=== PATIENT | female | born 1960 | race Caucasian/White ===

== ENCOUNTER → 2016-11-03 | Outpatient (CLI) | payer MEDICARE, OTHER | LOC: MAMO 09-05 13:40 | DX: Z12.31 Encounter for screening mammogram for malignant neoplasm of breast (principal) | CPT/HCPCS: G0202 ==

== ENCOUNTER 2020-08-19 18:22 | Inpatient (IN) | payer MEDICARE, OTHER ==
[~2020-08-19] VITALS: Ht 147.3 cm; Wt 65.3 kg
[~2020-08-19 18:22] MED LIST: MACROBID 100 M100 MG PO; PYRIDIUM100 MG PO
[2020-08-19 18:56] LABS: HEMOGLOBIN 12.2 gm/dl (12.3-15.3); RED BLOOD COUNT 3.83 M/UL (4.00-5.10)
[2020-08-19 19:33] LABS: BUN/CREATININE RATIO 22 (0-10)
[2020-08-19] MEDS ORDERED: FOSAMAX70 MG PO (21:58)
[2020-08-19] MEDS ORDERED: TOPROL XL 25 MG25 MG PO (22:00)
[2020-08-19] MEDS ORDERED: SEROQUEL TAB 2525 MG PO (22:01)
[2020-08-19] MEDS ORDERED: ACID CONTROLLER20 MG PO (22:02)
[2020-08-19] MEDS ORDERED: MIRAPEX1 MG PO (22:02)
[2020-08-19] MEDS ORDERED: NEURONTIN300 MG PO (22:03)
[2020-08-19] MEDS ORDERED: ZESTRIL 40 MG T40 MG PO (22:03)
[2020-08-19] MEDS ORDERED: NORVASC10 MG PO (22:03)
[2020-08-19] MEDS ORDERED: ABILIFY 5 MG TAB5 MG PO (22:04)
[2020-08-19] MEDS ORDERED: PROTONIX 40 MG40 M1 PO (22:06)
[2020-08-19] MEDS ORDERED: VISTARIL 25 MG25 MG PO (22:07)
[2020-08-19] MEDS ORDERED: TRAZODONE HCL100 MG PO (22:08)
[2020-08-19] MEDS ORDERED: LEVOTHYROXINE50 MC1 PO (22:08)
[2020-08-19] MEDS ORDERED: VITAMIN D-40010 MCG PO (22:09)
[2020-08-19] MEDS ORDERED: BAYER CHEWABLE81 MG PO (22:10)
[2020-08-19] MEDS ORDERED: SENNA8.6 MG PO (22:10)
[2020-08-19] MEDS ORDERED: VITAMIN B12-FO1 EACH PO (22:16)
[2020-08-19] MEDS ORDERED: CYMBALTA 30 MG30 MG PO (22:18)
[2020-08-19] MEDS ORDERED: HYDROCODON-ACE1 EAC3 PO (22:19)
[2020-08-19] MEDS ORDERED: PREDNISONE 5 MG5 MG PO (22:21)
[2020-08-20 01:06] LABS: HEMOGLOBIN 13.2 gm/dl (12.3-15.3); RED BLOOD COUNT 4.12 M/UL (4.00-5.10); WHITE BLOOD COUNT 13.5 K/UL (4.5-11.0)
[2020-08-20 01:31] LABS: BUN/CREATININE RATIO 21 (0-10)
[2020-08-20] MEDS ORDERED: VISTARIL 50 MG50 MG PO (10:53)
[2020-08-21 03:48] LABS: BUN/CREATININE RATIO 33 (0-10)
[2020-08-22 03:14] LABS: HEMOGLOBIN 11.6 gm/dl (12.3-15.3); WHITE BLOOD COUNT 12.6 K/UL (4.5-11.0)
[2020-08-22 03:15] LABS: RED BLOOD COUNT 3.69 M/UL (4.00-5.10)
[2020-08-22 03:30] LABS: BUN/CREATININE RATIO 29 (0-10)
[2020-08-23 02:47] LABS: HEMOGLOBIN 12.2 gm/dl (12.3-15.3); RED BLOOD COUNT 3.86 M/UL (4.00-5.10); WHITE BLOOD COUNT 9.7 K/UL (4.5-11.0)
[2020-08-23 03:08] LABS: BUN/CREATININE RATIO 29 (0-10)
[2020-08-24 03:15] LABS: HEMOGLOBIN 11.2 gm/dl (12.3-15.3); RED BLOOD COUNT 3.6 M/UL (4.00-5.10); WHITE BLOOD COUNT 7.9 K/UL (4.5-11.0)
[2020-08-24 03:46] LABS: BUN/CREATININE RATIO 32 (0-10)
[2020-08-25 03:23] LABS: HEMOGLOBIN 11.3 gm/dl (12.3-15.3); RED BLOOD COUNT 3.61 M/UL (4.00-5.10)
[2020-08-25 03:32] LABS: BUN/CREATININE RATIO 36 (0-10)
[2020-08-26 02:54] LABS: RED BLOOD COUNT 3.48 M/UL (4.00-5.10); WHITE BLOOD COUNT 10.9 K/UL (4.5-11.0)
[2020-08-26 03:10] LABS: BUN/CREATININE RATIO 28 (0-10)
[2020-08-28 02:18] LABS: HEMOGLOBIN 10.5 gm/dl (12.3-15.3); RED BLOOD COUNT 3.36 M/UL (4.00-5.10); WHITE BLOOD COUNT 11.3 K/UL (4.5-11.0)
[2020-08-28 02:37] LABS: BUN/CREATININE RATIO 23 (0-10)
[2020-08-29 03:57] LABS: HEMOGLOBIN 10.6 gm/dl (12.3-15.3); RED BLOOD COUNT 3.4 M/UL (4.00-5.10); WHITE BLOOD COUNT 11.3 K/UL (4.5-11.0)
[2020-08-29 04:16] LABS: BUN/CREATININE RATIO 23 (0-10)
[2020-08-30 03:28] LABS: HEMOGLOBIN 10.5 gm/dl (12.3-15.3); RED BLOOD COUNT 3.36 M/UL (4.00-5.10); WHITE BLOOD COUNT 11.6 K/UL (4.5-11.0)
[2020-08-30 03:43] LABS: BUN/CREATININE RATIO 27 (0-10)
[2020-08-31 02:28] LABS: HEMOGLOBIN 10.7 gm/dl (12.3-15.3); RED BLOOD COUNT 3.35 M/UL (4.00-5.10); WHITE BLOOD COUNT 12.3 K/UL (4.5-11.0)
[2020-08-31 02:46] LABS: BUN/CREATININE RATIO 30 (0-10)
[2020-09-01 02:59] LABS: HEMOGLOBIN 10.8 gm/dl (12.3-15.3); RED BLOOD COUNT 3.48 M/UL (4.00-5.10); WHITE BLOOD COUNT 12.8 K/UL (4.5-11.0)
[2020-09-01 03:26] LABS: BUN/CREATININE RATIO 23 (0-10)
[2020-09-02 02:29] LABS: HEMOGLOBIN 11.5 gm/dl (12.3-15.3); RED BLOOD COUNT 3.68 M/UL (4.00-5.10)
[2020-09-02 03:01] LABS: BUN/CREATININE RATIO 29 (0-10)
[2020-09-03 03:57] LABS: HEMOGLOBIN 11.1 gm/dl (12.3-15.3); RED BLOOD COUNT 3.56 M/UL (4.00-5.10); WHITE BLOOD COUNT 12.3 K/UL (4.5-11.0)
[2020-09-03 04:17] LABS: BUN/CREATININE RATIO 26 (0-10)
[2020-09-04 02:43] LABS: HEMOGLOBIN 10.6 gm/dl (12.3-15.3); RED BLOOD COUNT 3.37 M/UL (4.00-5.10); WHITE BLOOD COUNT 14.2 K/UL (4.5-11.0)
[2020-09-04 03:11] LABS: BUN/CREATININE RATIO 27 (0-10)
[2020-09-05 04:45] LABS: HEMOGLOBIN 10.5 gm/dl (12.3-15.3); RED BLOOD COUNT 3.37 M/UL (4.00-5.10); WHITE BLOOD COUNT 13.8 K/UL (4.5-11.0)
[2020-09-05 05:04] LABS: BUN/CREATININE RATIO 27 (0-10)
[2020-09-06 04:01] LABS: HEMOGLOBIN 10.3 gm/dl (12.3-15.3); RED BLOOD COUNT 3.28 M/UL (4.00-5.10); WHITE BLOOD COUNT 15.4 K/UL (4.5-11.0)
[2020-09-06 04:35] LABS: BUN/CREATININE RATIO 31 (0-10)
[2020-09-09 16:04] LABS: BUN/CREATININE RATIO 30 (0-10)
[2020-09-09 17:56] LABS: RED BLOOD COUNT 3.52 M/UL (4.00-5.10); WHITE BLOOD COUNT 13.6 K/UL (4.5-11.0)
[2020-09-10 02:24] LABS: HEMOGLOBIN 10.6 gm/dl (12.3-15.3); RED BLOOD COUNT 3.4 M/UL (4.00-5.10)
[2020-09-10 02:47] LABS: BUN/CREATININE RATIO 35 (0-10)
[2020-09-11 02:26] LABS: HEMOGLOBIN 10.7 gm/dl (12.3-15.3); RED BLOOD COUNT 3.41 M/UL (4.00-5.10); WHITE BLOOD COUNT 12.1 K/UL (4.5-11.0)
[2020-09-11 02:48] LABS: BUN/CREATININE RATIO 30 (0-10)
[2020-09-12 06:22] LABS: BUN/CREATININE RATIO 34 (0-10)
[2020-09-12 06:26] LABS: HEMOGLOBIN 10.3 gm/dl (12.3-15.3); RED BLOOD COUNT 3.36 M/UL (4.00-5.10); WHITE BLOOD COUNT 12.3 K/UL (4.5-11.0)
[2020-09-13 02:20] LABS: HEMOGLOBIN 10.2 gm/dl (12.3-15.3); RED BLOOD COUNT 3.26 M/UL (4.00-5.10); WHITE BLOOD COUNT 10.4 K/UL (4.5-11.0)
[2020-09-13 02:40] LABS: BUN/CREATININE RATIO 38 (0-10)
[2020-09-14 02:33] LABS: BUN/CREATININE RATIO 31 (0-10)
[2020-09-14 02:53] LABS: HEMOGLOBIN 10.2 gm/dl (12.3-15.3); RED BLOOD COUNT 3.28 M/UL (4.00-5.10); WHITE BLOOD COUNT 9.8 K/UL (4.5-11.0)
[2020-09-15 03:14] LABS: HEMOGLOBIN 10.3 gm/dl (12.3-15.3); RED BLOOD COUNT 3.29 M/UL (4.00-5.10); WHITE BLOOD COUNT 9.4 K/UL (4.5-11.0)
[2020-09-15 03:37] LABS: BUN/CREATININE RATIO 25 (0-10)
[2020-09-16 04:13] LABS: HEMOGLOBIN 9.9 gm/dl (12.3-15.3); RED BLOOD COUNT 3.13 M/UL (4.00-5.10)
[2020-09-16 04:35] LABS: BUN/CREATININE RATIO 30 (0-10)
[2020-09-17] MEDS ORDERED: ELIQUIS 2.5 MG2.5 MG PO (13:00)
[2020-09-17] MEDS ORDERED: IPRAT-ALBUT 0.5-3 ML NEB (13:09)
== END 2020-09-18 00:35 | disposition home health service (06) | DRG 177 ==
LOC: ER1 18:22 → MED SURG 4 21:15 → PROG CARE 21:15 → CDU 21:15 → MED SURG 4 08-20 13:28 → PROG CARE 08-22 02:34
PROVIDERS: Family Medicine; Internal Medicine; ADMIT Internal Medicine
PROC: XW13325 Transfusion of Convalescent Plasma (Nonautologous) into Peripheral Vein, Percutaneous Approach, New Technology Group 5 (ICD-10-PCS; 2020-08-19)
PROC: 8E0ZXY6 Isolation (ICD-10-PCS; principal; 2020-08-20)
PROC: XW033E5 Introduction of Remdesivir Anti-infective into Peripheral Vein, Percutaneous Approach, New Technology Group 5 (ICD-10-PCS; 2020-08-20)
PROC: 5A09457 Assistance with Respiratory Ventilation, 24-96 Consecutive Hours, Continuous Positive Airway Pressure (ICD-10-PCS; 2020-08-22)
PROC: 5A0955A Assistance with Respiratory Ventilation, Greater than 96 Consecutive Hours, High Flow/Velocity Cannula (ICD-10-PCS; 2020-09-03)
DX: U07.1 COVID-19 (principal); J12.82 Pneumonia due to coronavirus disease 2019; J15.9 Unspecified bacterial pneumonia; J80 Acute respiratory distress syndrome; D68.32 Hemorrhagic disorder due to extrinsic circulating anticoagulants; E87.6 Hypokalemia; S40.029A Contusion of unspecified upper arm, initial encounter; M81.0 Age-related osteoporosis without current pathological fracture; G47.00 Insomnia, unspecified; I34.1 Nonrheumatic mitral (valve) prolapse; G25.81 Restless legs syndrome; D53.9 Nutritional anemia, unspecified; J84.10 Pulmonary fibrosis, unspecified; M32.9 Systemic lupus erythematosus, unspecified; E55.9 Vitamin D deficiency, unspecified; F32.9 Major depressive disorder, single episode, unspecified; I10 Essential (primary) hypertension; K21.9 Gastro-esophageal reflux disease without esophagitis; G89.29 Other chronic pain; M54.5 Low back pain; G62.9 Polyneuropathy, unspecified; F41.9 Anxiety disorder, unspecified; Z79.02 Long term (current) use of antithrombotics/antiplatelets; Z79.82 Long term (current) use of aspirin; Z80.8 Family history of malignant neoplasm of other organs or systems; Z82.3 Family history of stroke; Z82.49 Family history of ischemic heart disease and other diseases of the circulatory system; Z88.2 Allergy status to sulfonamides; Z88.8 Allergy status to other drugs, medicaments and biological substances; Z79.899 Other long term (current) drug therapy
CPT/HCPCS: 0240U; 36415; 36600; 71045; 80048; 80053; 82550; 82553; 82728; 82803; 83605; 83735; 83874; 83880; 84100; 84132; 84484; 85025; 85027; 85379; 85610; 86140; 86900; 86901; 86927; 87040; 93005; 94640; 94660; 94664; 94760; 96365; 96375; 97110-GP-CQ; 97116; 97116-GP-CQ; 97161; 97530; 97530-GP-CQ; 99285; J0696; J1100; J1120; J1205; J1650; J1940; J2920; J7030; J7040; Q0177; Q9967

== ENCOUNTER 2020-09-24 10:55 | Emergency (ER) | payer MEDICARE, OTHER ==
[~2020-09-24 10:55] MED LIST changes: +ABILIFY 5 MG TAB5 MG PO; +ACID CONTROLLER20 MG PO; +BAYER CHEWABLE81 MG PO; +CYMBALTA 30 MG30 MG PO; +ELIQUIS 2.5 MG2.5 MG PO; +FOSAMAX70 MG PO; +HYDROCODON-ACE1 EAC3 PO; +IPRAT-ALBUT 0.5-3 ML NEB; +LEVOTHYROXINE50 MC1 PO; +MIRAPEX1 MG PO; +NEURONTIN300 MG PO; +NORVASC10 MG PO; +PREDNISONE 5 MG5 MG PO; +PROTONIX 40 MG40 M1 PO; +SENNA8.6 MG PO; +SEROQUEL TAB 2525 MG PO; +TOPROL XL 25 MG25 MG PO; +TRAZODONE HCL100 MG PO; +VISTARIL 25 MG25 MG PO; +VISTARIL 50 MG50 MG PO; +VITAMIN B12-FO1 EACH PO; +VITAMIN D-40010 MCG PO; +ZESTRIL 40 MG T40 MG PO
[2020-09-24 12:04] LABS: HEMOGLOBIN 9.2 gm/dl (12.3-15.3); RED BLOOD COUNT 2.93 M/UL (4.00-5.10); WHITE BLOOD COUNT 11.3 K/UL (4.5-11.0)
[2020-09-24 12:36] LABS: BUN/CREATININE RATIO 15 (0-10)
[2020-09-24] MEDS ORDERED: LASIX 40 MG TAB40 MG PO (18:56)
== END 2020-09-24 20:30 | disposition home or self-care (01) ==
LOC: ER1 10:55
PROVIDERS: Student in an Organized Health Care Education/Training Program
DX: U07.1 COVID-19 (principal); J12.82 Pneumonia due to coronavirus disease 2019; J96.10 Chronic respiratory failure, unspecified whether with hypoxia or hypercapnia; J81.1 Chronic pulmonary edema; I10 Essential (primary) hypertension; Z79.899 Other long term (current) drug therapy
CPT/HCPCS: 0240U; 36600; 71045; 80053; 81001; 82550; 82553; 82803; 83874; 83880; 84484; 85025; 85379; 93005; 96374; 99285; J1940; Q9967

== ENCOUNTER → 2020-10-09 | Outpatient (CLI) | payer MEDICARE, OTHER ==
[~2020-10-09] MED LIST changes: +DESYREL 50 MG T50 MG PO; +DULOXETINE HCL60 MG PO; +FUROSEMIDE20 MG PO; +HYDROXYZINE HCL25 MG PO; +LASIX 40 MG TAB40 MG PO
== END ==
LOC: RAD 15:11
DX: R06.02 Shortness of breath (principal); J84.9 Interstitial pulmonary disease, unspecified
CPT/HCPCS: 71046

== ENCOUNTER 2020-10-15 15:16 | Emergency (ER) | payer MEDICARE, OTHER ==
[~2020-10-15 15:16] MED LIST changes: -DESYREL 50 MG T50 MG PO; -DULOXETINE HCL60 MG PO; -FUROSEMIDE20 MG PO; -HYDROXYZINE HCL25 MG PO
[2020-10-15 16:01] LABS: HEMOGLOBIN 9.1 gm/dl (12.3-15.3); RED BLOOD COUNT 2.99 M/UL (4.00-5.10); WHITE BLOOD COUNT 12.1 K/UL (4.5-11.0)
[2020-10-15 16:41] LABS: BUN/CREATININE RATIO 20 (0-10)
== END 2020-10-15 21:20 | disposition home or self-care (01) ==
LOC: ER1 15:16
PROVIDERS: Physician Assistant
DX: R06.02 Shortness of breath (principal); Z20.822 Contact with and (suspected) exposure to COVID-19; Z86.16 Personal history of COVID-19; I11.0 Hypertensive heart disease with heart failure; I50.9 Heart failure, unspecified; R60.0 Localized edema; J84.10 Pulmonary fibrosis, unspecified
CPT/HCPCS: 36600; 71045; 80053; 82550; 82553; 82803; 83874; 83880; 84484; 85025; 93005; 96374; 99285; J1940; Q9967; U0002

== ENCOUNTER → 2020-11-07 | Outpatient (CLI) | payer MEDICARE, OTHER ==
[~2020-11-07] MED LIST changes: +DESYREL 50 MG T50 MG PO; +DULOXETINE HCL60 MG PO; +FUROSEMIDE20 MG PO; +HYDROXYZINE HCL25 MG PO
== END ==
LOC: HEART 5 16:07
DX: J30.9 Allergic rhinitis, unspecified (principal); J84.10 Pulmonary fibrosis, unspecified; F41.9 Anxiety disorder, unspecified; M19.90 Unspecified osteoarthritis, unspecified site; F32.9 Major depressive disorder, single episode, unspecified; H26.9 Unspecified cataract; I10 Essential (primary) hypertension; E78.00 Pure hypercholesterolemia, unspecified; E03.9 Hypothyroidism, unspecified; Z86.16 Personal history of COVID-19
CPT/HCPCS: 94060; 94729

== ENCOUNTER 2020-11-21 07:23 | Emergency (ER) | payer MEDICARE, OTHER ==
[~2020-11-21 07:23] MED LIST changes: -DESYREL 50 MG T50 MG PO; -DULOXETINE HCL60 MG PO; -FUROSEMIDE20 MG PO; -HYDROXYZINE HCL25 MG PO
[2020-11-21 09:03] LABS: HEMOGLOBIN 9.6 gm/dl (12.3-15.3); RED BLOOD COUNT 3.27 M/UL (4.00-5.10); WHITE BLOOD COUNT 7.1 K/UL (4.5-11.0)
[2020-11-21 09:04] LABS: BUN/CREATININE RATIO 13 (0-10)
== END 2020-11-21 11:35 | disposition home or self-care (01) ==
LOC: ER1 07:23
PROVIDERS: Internal Medicine
DX: R53.1 Weakness (principal); I10 Essential (primary) hypertension; Z90.89 Acquired absence of other organs
CPT/HCPCS: 71046; 80053; 81001; 84484; 85025; 99285

== ENCOUNTER → 2020-12-03 | Outpatient (CLI) | payer MEDICARE, OTHER ==
[~2020-12-03] VITALS: Ht 152.4 cm; Wt 68.5 kg
[~2020-12-03] MED LIST changes: +DESYREL 50 MG T50 MG PO; +DULOXETINE HCL60 MG PO; +FUROSEMIDE20 MG PO; +HYDROXYZINE HCL25 MG PO
== END ==
LOC: OPSV 10:00
DX: D50.9 Iron deficiency anemia, unspecified (principal); K90.9 Intestinal malabsorption, unspecified
CPT/HCPCS: 96365; J1439; J7030

== ENCOUNTER → 2020-12-10 | Outpatient (CLI) | payer MEDICARE, OTHER | LOC: OPSV 10:00 | DX: D50.9 Iron deficiency anemia, unspecified (principal); K90.9 Intestinal malabsorption, unspecified | CPT/HCPCS: 96365; J1439; J7030 ==

== ENCOUNTER 2020-12-19 16:07 | Observation (INO) | payer MEDICARE, OTHER ==
[~2020-12-19] VITALS: Ht 147.3 cm; Wt 68.6 kg
[~2020-12-19 16:07] MED LIST changes: -DESYREL 50 MG T50 MG PO; -DULOXETINE HCL60 MG PO; -FUROSEMIDE20 MG PO; -HYDROXYZINE HCL25 MG PO
[2020-12-19 18:02] LABS: RED BLOOD COUNT 3.71 M/UL (4.00-5.10); WHITE BLOOD COUNT 6.5 K/UL (4.5-11.0)
[2020-12-19 18:07] LABS: BUN/CREATININE RATIO 11 (0-10)
[2020-12-19] MEDS ORDERED: DULOXETINE HCL60 MG PO (23:02)
[2020-12-19] MEDS ORDERED: DESYREL 50 MG T50 MG PO (23:03)
[2020-12-19] MEDS ORDERED: HYDROXYZINE HCL25 MG PO ×2 (23:05→23:13)
[2020-12-19] MEDS ORDERED: FUROSEMIDE20 MG PO (23:08)
[2020-12-20 05:40] LABS: HEMOGLOBIN 10.9 gm/dl (12.3-15.3); RED BLOOD COUNT 3.68 M/UL (4.00-5.10)
[2020-12-20 05:41] LABS: WHITE BLOOD COUNT 10.7 K/UL (4.5-11.0)
[2020-12-20 06:16] LABS: BUN/CREATININE RATIO 11 (0-10)
== END 2020-12-20 14:55 | disposition home or self-care (01) ==
LOC: ER1 16:07 → MED SURG 4 18:49 → CDU 18:49 → MED SURG 4 22:00
PROVIDERS: Emergency Medicine; ADMIT Internal Medicine
DX: G93.40 Encephalopathy, unspecified (principal); I10 Essential (primary) hypertension; K21.9 Gastro-esophageal reflux disease without esophagitis; M32.9 Systemic lupus erythematosus, unspecified; G62.9 Polyneuropathy, unspecified; M54.9 Dorsalgia, unspecified; G89.29 Other chronic pain; E78.5 Hyperlipidemia, unspecified; Z86.16 Personal history of COVID-19; Z88.2 Allergy status to sulfonamides; Z88.8 Allergy status to other drugs, medicaments and biological substances; Z79.891 Long term (current) use of opiate analgesic; Z79.82 Long term (current) use of aspirin; Z79.899 Other long term (current) drug therapy; Z20.822 Contact with and (suspected) exposure to COVID-19
CPT/HCPCS: 36415; 36600; 70450; 70551; 71045; 80053; 80307; 81001; 82550; 82553; 82803; 83874; 84484; 85025; 86140; 87040; 87086; 93005; 96374; 99285; G0378; J0696; J7040; U0002

== ENCOUNTER → 2021-01-21 | Outpatient (CLI) | payer MEDICARE, OTHER ==
[~2021-01-21] MED LIST changes: +DESYREL 50 MG T50 MG PO; +DULOXETINE HCL60 MG PO; +FUROSEMIDE20 MG PO; +HYDROXYZINE HCL25 MG PO
== END ==
LOC: KOH-I 12:57
DX: J84.10 Pulmonary fibrosis, unspecified (principal); R91.8 Other nonspecific abnormal finding of lung field
CPT/HCPCS: 71250

== ENCOUNTER → 2021-03-28 | Outpatient (CLI) | payer MEDICARE, OTHER ==
[2021-03-28 14:55] LABS: HEMOGLOBIN 11.1 gm/dl (12.3-15.3); RED BLOOD COUNT 3.61 M/UL (4.00-5.10); WHITE BLOOD COUNT 6.4 K/UL (4.5-11.0)
[2021-03-28 15:15] LABS: BUN/CREATININE RATIO 14 (0-10)
[2021-03-29 08:13] LABS: HBSAG SCREEN Negative (Negative); HEP B CORE AB, TOT Negative (Negative)
[2021-03-29 12:13] LABS: COMPLEMENT C3, SERUM 134 mg/dL (82-167); COMPLEMENT C4, SERUM 22 mg/dL (12-38); HCV AB <0.1 (0.0-0.9); RHEUMATOID ARTHRITIS FACTOR <10.0 IU/mL (0.0-13.9)
[2021-04-01 13:10] LABS: DSDNA CRITHIDIA LUCILIAE IFA Negative (Negative)
== END ==
LOC: LAB 12:29
PROVIDERS: Nurse Practitioner Family
DX: D89.9 Disorder involving the immune mechanism, unspecified (principal); M25.50 Pain in unspecified joint; R76.8 Other specified abnormal immunological findings in serum; M32.9 Systemic lupus erythematosus, unspecified; Z79.899 Other long term (current) drug therapy; Z11.59 Encounter for screening for other viral diseases
CPT/HCPCS: 36415; 80053; 81001; 82570; 83520; 84156; 85025; 85652; 86140; 86160; 86162; 86200; 86255; 86431; 86704; 86803; 87340

== ENCOUNTER → 2021-04-23 | Outpatient (CLI) | payer MEDICARE, OTHER | LOC: KOH-I 15:17 | DX: R06.02 Shortness of breath (principal); M79.642 Pain in left hand; J98.4 Other disorders of lung | CPT/HCPCS: 71046; 73120 ==

== ENCOUNTER → 2021-05-08 | Outpatient (CLI) | payer MEDICARE, OTHER | LOC: EXRD 13:36 | DX: M25.551 Pain in right hip (principal) | CPT/HCPCS: 73502 ==

== ENCOUNTER → 2021-05-30 | Outpatient (CLI) | payer MEDICARE, OTHER | LOC: HEART 5 11:58 | DX: J84.10 Pulmonary fibrosis, unspecified (principal) | CPT/HCPCS: 94060; 94729 ==

== ENCOUNTER → 2021-07-03 | Outpatient (CLI) | payer MEDICARE, OTHER | LOC: KOH-I 16:32 | DX: R06.2 Wheezing (principal); J84.89 Other specified interstitial pulmonary diseases | CPT/HCPCS: 71046 ==

== ENCOUNTER → 2022-01-29 | Outpatient (CLI) | payer MEDICARE, OTHER | LOC: KOH-I 13:59 | DX: M54.42 Lumbago with sciatica, left side (principal); G89.29 Other chronic pain; M54.2 Cervicalgia; M43.8X6 Other specified deforming dorsopathies, lumbar region; M47.812 Spondylosis without myelopathy or radiculopathy, cervical region; M48.061 Spinal stenosis, lumbar region without neurogenic claudication | CPT/HCPCS: 72040; 72100 ==

== ENCOUNTER → 2022-03-05 | Outpatient (CLI) | payer MEDICARE | LOC: EMI 02-18 11:15 | DX: M51.16 Intervertebral disc disorders with radiculopathy, lumbar region (principal); G89.29 Other chronic pain; M47.816 Spondylosis without myelopathy or radiculopathy, lumbar region; M25.78 Osteophyte, vertebrae | CPT/HCPCS: 72148 ==